=== PATIENT | male | born 1940 | race Caucasian/White ===

== ENCOUNTER 2024-11-15 20:01 | Emergency (ER) | payer MEDICARE, OTHER ==
[~2024-11-15] VITALS: Ht 182.9 cm; Wt 96.0 kg
[~2024-11-15 20:01] MED LIST: ERYTHROMYCIN250 MG PO
--- OUTSIDE RECORDS SUMMARY | 2024-11-15 20:08 | XMS ---
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 Kin VISIT COUNT (12 MO.) 6 [facility] Angella Beltran ([place]) [address] [place] [address] TOTAL 7 NOTE: Visits indicate total known visits. ED/UCC VISIT TRACKING (12 MO.) [facility] COMPLAINT: - UNWELL 11/13/2024 17:14 [facility] Angella MILLAN ([place]) TYPE: Emergency DIAGNOSES: - Nausea - Weakness - Emesis - EMS 11/09/2024 15:45 [facility] [place] ([place]) TYPE: Emergency DIAGNOSES: - Unspecified abdominal pain - Dizziness - dizzy 10/30/2024 18:40 [facility] [place] ([place]) TYPE: Emergency DIAGNOSES: - Dizziness and giddiness - Dizziness - EMS 10/06/2024 15:32 [facility] [place] ([place]) TYPE: Emergency DIAGNOSES: - Abnormal coagulation profile - abnormal lab - Labs Only 07/24/2024 16:23 [facility] [place] ([place]) TYPE: Emergency DIAGNOSES: - Localized edema - leg pain - Leg Swelling [facility]24 [facility] DIAGNOSES: - Chest pain, unspecified - Chest Pain INPATIENT VISIT TRACKING (12 MO.) No inpatient visits to display in this time frame [id number]
[2024-11-15 20:31] LABS: BASOPHILS 0.9 % (0-2); EOSINOPHILS 3.8 % (0-6); HEMOGLOBIN 12.2 g/dL (12.0-18.0); LYMPHOCYTES 16.4 % (24-44); MCH 28.9 (27-36); MCHC 33.9 g/dl (30-36); MCV 85.3 fl (81-99); MONOCYTES 11.1 % (0-12); NEUTROPHILS 67.8 % (39-80); PLATELET COUNT 212 K/uL (140-440); RBC 4.22 M/ul (4.3-5.7); RDW 14.9 (10.5-15.0)
[2024-11-15] MEDS ORDERED: TRAZODONE HCL50 MG PO (20:33)
[2024-11-15] MEDS ORDERED: ONDANSETRON ODT8 MG PO (20:33)
[2024-11-15] MEDS ORDERED: ABIRATERONE AC250 MG PO (20:34)
[2024-11-15] MEDS ORDERED: METOPROLOL SUCC25 MG PO (20:34)
[2024-11-15] MEDS ORDERED: DONEPEZIL HCL10 MG PO (20:34)
[2024-11-15] MEDS ORDERED: LOSARTAN POTASS25 MG PO (20:34)
[2024-11-15] MEDS ORDERED: FARXIGA10 MG PO (20:34)
[2024-11-15] MEDS ORDERED: TORSEMIDE10 MG PO (20:34)
[2024-11-15] MEDS ORDERED: MECLIZINE HCL25 MG PO (20:34)
[2024-11-15] MEDS ORDERED: ESCITALOPRAM OX20 MG PO (20:34)
[2024-11-15] MEDS ORDERED: NITROGLYCERIN0.4 MG SL (20:35)
[2024-11-15] MEDS ORDERED: OMEPRAZOLE20 MG PO (20:35)
[2024-11-15] MEDS ORDERED: LOPERAMIDE2 MG PO (20:35)
[2024-11-15] MEDS ORDERED: SPIRONOLACTONE25 MG PO (20:36)
[2024-11-15] MEDS ORDERED: ELIQUIS2.5 MG PO (20:36)
[2024-11-15] MEDS ORDERED: PREDNISONE5 MG PO (20:36)
[2024-11-15] MEDS ORDERED: LIPITOR40 MG PO (20:37)
[2024-11-15 20:47] LABS: ALBUMIN 3.1 g/dL (3.4-5.0); ALBUMIN/GLOBULIN RATIO 0.97 (1.1-2.4); ANION GAP 12.9 (7-21); BUN/CREATININE RATIO 15.07 (6.0-28.6); CALCIUM 8.9 mg/dL (8.5-10.1); CREATININE, SERUM 1.26 mg/dL (0.70-1.30); MAGNESIUM 1.8 mg/dL (1.8-2.4); POTASSIUM 2.9 mmol/L (3.5-5.1); PROTEIN, TOTAL 6.3 g/dL (6.4-8.2)
[2024-11-15] MEDS ORDERED: POTASSIUM CHLORIDE 10 MEQ TABCR PO ONE (22:00)
[2024-11-16 05:33] LABS: BILIRUBIN, URINE POSITIVE (negative); BLOOD/HGB, URINE NEGATIVE (Negative); KETONE, URINE TRACE (Negative); LEUK ESTERASE, URINE NEGATIVE (negative); NITRITE, URINE NEGATIVE (negative)
[2024-11-16 05:37] LABS: BACTERIA, URINE RARE /hpf (negative); CASTS, URINE NONE SEEN \\lpf; COLLECTION TYPE, URINE CLEAN CATCH; CRYSTALS, URINE NONE SEEN (0-1+); EPITHELIAL CELLS, URINE SQUAMOUS 1+ /lpf (0-1+); RED BLOOD CELLS, URINE 0-1 /hpf (0-5); REFLEX CULTURE, URINE No (No); WHITE BLOOD CELLS, URINE 0-1 /HPF (0-5)
[2024-11-16 09:57] VITALS: BP 147/72
--- NOTE | 2024-11-17 14:12 | EKG ---
[facility] [address] [facility] [place], [place] [address] Signed Atrial fibrillation with frequent ventricular-paced complexes Cannot rule out Inferior infarct , age undetermined Prolonged QT Abnormal ECG No previous ECGs available Confirmed by Brian Villeda MD ([id number]) on 11/17/2024 2:12:35 PM Electronically Signed By: BRIAN VILLEDA MD 11/17/24 1412 PATIENT NAME: ASHA ROBISON Electrocardiogram DATE OF : 44 PHYSICIAN: BRIAN VILLEDA MD REPORT #: [id number] REPORT IS CONFIDENTIAL AND NOT TO BE RELEASED WITHOUT AUTHORIZATION
== END 2024-11-16 09:45 | disposition home or self-care (01) ==
LOC: ED 20:01
PROVIDERS: Emergency Medicine
DX: R53.1 Weakness (principal); E78.00 Pure hypercholesterolemia, unspecified; K21.9 Gastro-esophageal reflux disease without esophagitis; I11.0 Hypertensive heart disease with heart failure; I50.9 Heart failure, unspecified; Z79.899 Other long term (current) drug therapy; Z79.52 Long term (current) use of systemic steroids; Z88.0 Allergy status to penicillin
CPT/HCPCS: 36415; 71045; 80053; 81001; 83735; 84484; 85025; 93005; 93010; 99285-25; A9270

== ENCOUNTER 2025-03-27 13:24 | Emergency (ER) | payer MEDICARE, OTHER ==
[~2025-03-27] VITALS: Ht 182.9 cm; Wt 87.3 kg
[~2025-03-27 13:24] MED LIST changes: +ABIRATERONE AC250 MG PO; +DONEPEZIL HCL10 MG PO; +ELIQUIS2.5 MG PO; +ESCITALOPRAM OX20 MG PO; +FARXIGA10 MG PO; +LIPITOR40 MG PO; +LOPERAMIDE2 MG PO; +LOSARTAN POTASS25 MG PO; +MECLIZINE HCL25 MG PO; +METOPROLOL SUCC25 MG PO; +NITROGLYCERIN0.4 MG SL; +OMEPRAZOLE20 MG PO; +ONDANSETRON ODT8 MG PO; +PREDNISONE5 MG PO; +SPIRONOLACTONE25 MG PO; +TORSEMIDE10 MG PO; +TRAZODONE HCL50 MG PO
--- OUTSIDE RECORDS SUMMARY | 2025-03-27 13:31 | XMS ---
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 No recent Security Events currently on file CRITERIA MET - 6 ED Visits in 6 Months CARE PROVIDERS -, [facility] Dentist: Ambulette Driver Current [place] PHONE: [phone] MACKENZIE SPARKS Nurse Practitioner: Family Current PHONE: [phone] MIRNA SPENCE Physician [employer] [facility] [place] PHONE: [phone] ANNA REINOSO Internal Medicine Current PHONE: [phone] MEG [facility] Current PHONE: [phone] OSMANY GAN Nurse Practitioner: Adult Health Current [place] PHONE: [phone] Amira FONTANA Guest Experience Specialist/Steel Detailer Current PHONE: [phone] DAVID GABRIEL Nurse Practitioner: Family Current PHONE: Unknown CAMPBELL MENDOZA Nurse Practitioner Current PHONE: [phone] Itzel has no Care Guidelines for this patient. Kin VISIT COUNT (12 MO.) 7 [facility] ([place]) 2 [facility] TOTAL 9 NOTE: Visits indicate total known visits. ED/UCC VISIT TRACKING (12 MO.) 03/27/2025 13:25 [facility] [place] TYPE: Emergency COMPLAINT: - DIARRHEA 11/21/2024 13:08 [facility] Ham MILLAN ([place]) TYPE: Emergency DIAGNOSES: - Adult failure to thrive - Alzheimer's disease with late onset - Dementia in other diseases classified elsewhere, mild, without behavioral disturbance, psychotic disturbance, mood disturbance, and anxiety - Diarrhea, unspecified - Failure to thrive (child) - Malignant neoplasm of prostate - Nausea with vomiting, unspecified - Patient's noncompliance with other medical treatment and regimen due to unspecified reason - Secondary malignant neoplasm of bone - ems - Failure to Thrive - Nausea - Weakness 11/15/2024 20:01 [facility] [place] TYPE: Emergency COMPLAINT: - UNWELL DIAGNOSES: - Allergy status to penicillin - Gastro-esophageal reflux disease without esophagitis - Heart failure, unspecified - Hypertensive heart disease with heart failure - residential (current) use of systemic steroids - 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 - Pure hypercholesterolemia, unspecified - Weakness 11/13/2024 17:14 [facility] Ham MILLAN ([place]) TYPE: Emergency DIAGNOSES: - Nausea - Weakness - Emesis - EMS 11/09/2024 15:45 [facility] Ham MILL[place] ([place]) TYPE: Emergency DIAGNOSES: - Unspecified abdominal pain - Dizziness - dizzy 10/30/2024 18:40 [facility] Ham MILLAN ([place]) TYPE: Emergency DIAGNOSES: - Dizziness and giddiness - Dizziness - EMS 10/06/2024 15:32 [facility] Ham MILLAN ([place]) TYPE: Emergency DIAGNOSES: - Abnormal coagulation profile - abnormal lab - Labs Only [facility]: Emergency DIAGNOSES: - Localized edema - leg pain - Leg Swelling 06/06/2024 05:41 [facility] Ham MILLAN ([place]) TYPE: Emergency DIAGNOSES: - Chest pain, unspecified - Chest Pain INPATIENT VISIT TRACKING (12 MO.) 11/21/2024 13:08 [facility] Ham MILLAN ([place]) TYPE: Medical Surgical DIAGNOSES: - Abnormal weight loss - Adult failure to thrive - Alzheimer's disease with late onset - Dementia in other diseases classified elsewhere, mild, without behavioral disturbance, psychotic disturbance, mood disturbance, and anxiety - Diarrhea, unspecified - Encounter for palliative care - Malignant neoplasm of prostate - Nausea with vomiting, unspecified - Other malaise - Other specified counseling - Patient's noncompliance with other medical treatment and regimen due to unspecified reason - Polymyalgia rheumatica - Secondary malignant neoplasm of bone [id number]
[2025-03-27] MEDS ORDERED: SODIUM CHLORIDE 0.9% 500 ML IV ONE (13:45)
[2025-03-27 13:52] LABS: BASOPHILS 0.5 % (0.2-1.2); EOSINOPHILS 0.9 % (0.8-7.0); LYMPHOCYTES 10.5 % (21.8-53.1); MCH 30.3 PG (25.7-32.2); MCHC 32.6 g/dL (32.3-36.5); MCV 92.9 fL (79.0-92.2); MONOCYTES 7.9 % (5.3-12.2); NEUTROPHILS 79.8 % (34.0-67.9); RBC 4.09 M/uL (4.63-6.08)
[2025-03-27 14:09] LABS: ALT (SGPT) 17.0 U/L (14-59); AST (SGOT) 13.0 U/L (15-37); GLOMERULAR FILTRATION RATE,EST 53.0 mL/min (>60); PROTEIN, TOTAL 6.9 g/dL (6.4-8.2); UREA NITROGEN 23.0 mg/dL (7-18)
[2025-03-27 14:14] LABS: BLOOD/HGB, URINE NEGATIVE (Negative); KETONE, URINE NEGATIVE (Negative); LEUK ESTERASE, URINE NEGATIVE (negative); NITRITE, URINE NEGATIVE (negative)
[2025-03-27] MEDS ORDERED: SODIUM CHLORIDE 0.9% 500 ML IV PRN (14:30)
[2025-03-27] MEDS ORDERED: IMODIUM A-D2 M2 PO (16:39)
[2025-03-27 17:17] VITALS: BP 131/68
== END 2025-03-27 17:16 | disposition home or self-care (01) ==
LOC: ED 13:24
PROVIDERS: Emergency Medicine
DX: E86.0 Dehydration (principal); R19.7 Diarrhea, unspecified; C50.929 Malignant neoplasm of unspecified site of unspecified male breast; I25.10 Atherosclerotic heart disease of native coronary artery without angina pectoris; E78.00 Pure hypercholesterolemia, unspecified; I11.0 Hypertensive heart disease with heart failure; I50.9 Heart failure, unspecified; Z95.0 Presence of cardiac pacemaker; Z88.0 Allergy status to penicillin; Z95.1 Presence of aortocoronary bypass graft; Z79.01 Long term (current) use of anticoagulants; Z79.60 Long term (current) use of unspecified immunomodulators and immunosuppressants; Z79.899 Other long term (current) drug therapy
CPT/HCPCS: 36415; 80053; 81003; 83735; 85025; 96361; 96374; 99284-25; J2405; J7040